=== PATIENT | male | born 1955 | race Caucasian/White ===

== ENCOUNTER 2022-05-19 13:49 | Emergency (ER) | payer MEDICARE, MEDICAID ==
[~2022-05-19] VITALS: Ht 172.7 cm; Wt 61.4 kg
[~2022-05-19 13:49] MED LIST: AVO0.5C PO; COR3.125T PO; FLO0.4C PO; PHO667C PO; TRAZ-251 PO
[2022-05-19] MEDS ORDERED: ondansetron/PF 4mg/2ml inj IV ONE (14:15)
[2022-05-19] MEDS ORDERED: normal saline 1000ML IV soln IVB ONE (14:15)
[2022-05-19] MEDS ORDERED: morphine 4 MG/ML inj SYRINge IV PRN (14:15)
[2022-05-19 14:29] LABS: EOSINOPHILS % (AUTO) 0.2 % (0-6); HEMOGLOBIN 9.9 g/dl (14.0-17.9); MEAN CORPUSCULAR VOLUME 98.8 FL (78-98)
[2022-05-19 14:31] LABS: BASOPHILS % (AUTO) 0.5 % (0-1); HEMATOCRIT 30.2 % (42.0-52.0); LYMPHOCYTES # (AUTO) 0.5 X10'3 (1.1-4.8); LYMPHOCYTES % (AUTO) 6.3 % (21-51); MEAN CORPUSCULAR HEMOGLOBIN 32.4 PG (27.0-31.0); MEAN CORPUSCULAR HGB CONC 32.8 g/dL (33.0-36.5); MEAN PLATELET VOLUME 8.6 FL (7.4-10.4); NEUTROPHILS # (AUTO) 6.3 X10'3 (1.8-7.7); PLATELET COUNT 224 X10'3 (140-440); RED BLOOD COUNT 3.06 X10'6 (4.70-6.10); RED CELL DISTRIBUTION WIDTH 14.8 % (11.5-14.5); WHITE BLOOD COUNT 7.9 X10'3 (4.5-11.0)
[2022-05-19 14:49] LABS: ALANINE AMINOTRANSFERASE 1074 U/L (12-78); ALBUMIN 2.6 G/DL (3.4-5.0); ALBUMIN/GLOBULIN RATIO 0.8 (1.1-1.5); ALKALINE PHOSPHATASE 279 IU/L (46-116); ANION GAP 13 (8-16); ASPARTATE AMINO TRANSFERASE 500 U/L (10-37); BILIRUBIN,TOTAL 1.5 MG/DL (0.1-1.0); BLOOD UREA NITROGEN 75 MG/DL (7-18); BUN/CREATININE RATIO 18.5 (5.4-32.0); CALCIUM 6.1 MG/DL (8.5-10.1); CHLORIDE 104 MMOL/L (99-107); CREATININE 4.06 MG/DL (0.60-1.10); GLUCOSE 127 MG/DL (70-104); POTASSIUM 4.3 MMOL/L (3.5-5.1); SODIUM 138 MMOL/L (135-145); TOTAL CARBON DIOXIDE 20.8 MMOL/L (24-32); eGFR 15 ML/MIN
[2022-05-19 14:54] LABS: NUCLEATED RED BLOOD CELLS 6 /100WBC (0-0); PLATELET ESTIMATE NORMAL; TOTAL CELLS COUNTED 100
[2022-05-19 14:55] LABS: ELLIPTOCYTES FEW; LARGE PLATELETS FEW
[2022-05-19] MEDS ORDERED: LIDOcaine 2% 10ml TOPICAL JELLY (Urojet) TP ONE (15:40)
[2022-05-19] MEDS ORDERED: CEPH250T PO (16:08)
--- NOTE | 2022-05-19 16:19 | NUR ---
spoke with [facility]. informed of current plan and dc plan. pt calling ride for dc.
--- NOTE | 2022-05-19 17:20 | NUR ---
GLYNN VALDEZ AWARE OF CURRENT BP. 2ND BOLUS STARTED PER ORDERS. PT AROUSABLE BUT LETHARGIC. WILL CONTINUE TO MONITOR.
[2022-05-19] MEDS ORDERED: normal saline 1000ml 1,000 ML IV ONE (17:25)
[2022-05-19 18:44] VITALS: BP 99/66
== END 2022-05-19 19:33 | disposition home or self-care (01) ==
LOC: ER 13:49
DX: T83.9XXA Unspecified complication of genitourinary prosthetic device, implant and graft, initial encounter (principal); T19.1XXA Foreign body in bladder, initial encounter; I50.9 Heart failure, unspecified; Z87.81 Personal history of (healed) traumatic fracture; Z88.0 Allergy status to penicillin; Z79.899 Other long term (current) drug therapy; Z79.1 Long term (current) use of non-steroidal anti-inflammatories (NSAID)
CPT/HCPCS: 36415; 76770; 80053; 85007; 85025; 85610; 96361; 96374; 96375; 99285; J2270; J2405; J7030; A4358; A4615